=== PATIENT | male | born 1960 | race Caucasian/White ===

== ENCOUNTER 2019-12-16 08:21 | Outpatient (CLI) | payer OTHER, SELFPAY ==
--- NOTE | ~2019-12-16 | XR_ITS ---
EXAMINATION: XR knee RT 3V DATE: 12/16/2019 08:55 INDICATION: Right knee pain. TECHNIQUE: 3 views of right knee were obtained. COMPARISON: None. FINDINGS: Bone alignment is normal. No fracture. There is mild tricompartmental osteoarthritis. No kn ee joint effusion. IMPRESSION: 1. Mild right knee osteoarthritis. Reviewed, dictated and finalized at location B. RN CLERK
== END 2019-12-16 08:22 | disposition home or self-care (01) ==
PROVIDERS: PCP Family Medicine; Visit Provider Family Medicine
DX: M23.309 Other meniscus derangements, unspecified meniscus, unspecified knee (principal)
CPT/HCPCS: 73562

== ENCOUNTER 2020-07-06 15:01 | Outpatient (RCR) | payer OTHER, SELFPAY ==
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
== END 2020-07-06 16:24 | disposition home or self-care (01) ==
LOC: CHSPT 15:01
PROVIDERS: PCP Nurse Practitioner Family; Visit Provider Nurse Practitioner Family
DX: M19.90 Unspecified osteoarthritis, unspecified site (principal)
CPT/HCPCS: 97162

== ENCOUNTER 2021-10-01 20:32 | Emergency (ER) | payer OTHER, SELFPAY ==
--- NOTE | ~2021-10-01 | CT_ITS ---
EXAMINATION: CT cervical spine wo con DATE: 10/01/2021 22:17 INDICATION: Neck pain TECHNIQUE: Computed tomography (CT) of the cervical spine was performed without intravenous contrast. The dose-length product (DLP) was 411.40 mGy-cm. Automated exposure control and iterative reconstruc tion technique were employed. COMPARISON: None FINDINGS: There are 2 mm of retrolisthesis of C5 on C6. There is no fracture. There is moderate loss of intervertebral disc space height at C5-6. The odontoid is intact. The prevertebral soft tissues ar e normal. Small degenerative osteophytes project from the anterior endplates of multiple vertebral kiesha dies. There is moderate facet and uncovertebral joint osteoarthritis at C5-6. IMPRESSION: 1. Moderate cervical spondylosis at C5-C6 without acute findings. Reviewed, dictated and finalized at location A.
--- NOTE | ~2021-10-01 | CT_ITS ---
EXAMINATION: CT diagnostic chest wo con DATE: 10/01/2021 22:17 INDICATION: Thoracic back pain TECHNIQUE: Computed tomography (CT) of the chest was performed without intravenous contrast. The dose -length product (DLP) was 425.78 mGy-cm. Automated exposure control and iterative reconstruction tech nique were employed. COMPARISON: None FINDINGS: The lungs are free of focal airspace opacities. There is a 4 mm nodule in the right lower l obe. No pleural effusion or pneumothorax. Fissural lymph nodes are noted. No pathologically enlarged thoracic lymph nodes are identified. The heart size is normal. There is mild thoracic spondylosis. A stabilization screws noted in the right glenoid. IMPRESSION: 1. No CT correlate for the patient's symptoms. 2. 4 mm nodule of the right lower lobe, likely old granulomatous disease. If the patient has no risk factors for malignancy, no further follow up is required. If there are risk factors for malignancy ( i.e., history of smoking, asbestos or radiation exposure), consider followup CT in 12 months. Reviewed, dictated and finalized at location A. IMPRESSION: 1. No CT correlate for the patient's symptoms. 2. 4 mm nodule of the right lower lobe, likely old granulomatous disease. If th e patient has no risk factors for malignancy, no further follow up is required. If there are risk factors for malignancy (i.e., history of smoking, asbestos or radiation exposure), consider followup CT in 12 months.
[2021-10-01 20:41] VITALS: BP 133/82; PULSE 78; RESP 18; TEMP 37; O2SAT 98
[2021-10-01] MEDS: KETOROLAC (*BKC) 60 MG/2 ML VIAL IM (21:46)
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
[2021-10-01 23:36] VITALS: PULSE 72; RESP 18; TEMP 36.4; O2SAT 100
== END 2021-10-01 23:38 | disposition home or self-care (01) ==
PROVIDERS: Emergency Provider Emergency Medicine; PCP Family Medicine
DX: S13.4XXA Sprain of ligaments of cervical spine, initial encounter (principal); X50.9XXA Other and unspecified overexertion or strenuous movements or postures, initial encounter
CPT/HCPCS: 71250; 72125; 96372; 99284; J1885

== ENCOUNTER 2021-12-05 06:32 | Emergency (ER) | payer SELFPAY ==
--- NOTE | ~2021-12-05 | XR_ITS ---
EXAMINATION: XR foot RT min 3V DATE: 12/05/2021 07:02 INDICATION: Right foot injury and pain. TECHNIQUE: 4 views of right foot were obtained. COMPARISON: None. FINDINGS: Bone alignment is normal. No acute fracture. There is an old healed fracture of diaphysis o f second metatarsal. There is mild osteoarthritis of first metatarsophalangeal joint and some the int erphalangeal joints. There is an enthesophyte at plantar aspect of calcaneal tuberosity. IMPRESSION: 1. Mild polyarticular osteoarthritis. Reviewed, dictated and finalized at location A.
--- NOTE | ~2021-12-05 | XR_ITS ---
EXAMINATION: XR ankle RT min 3V DATE: 12/05/2021 07:01 INDICATION: Right ankle injury and pain. TECHNIQUE: 4 views of right ankle were obtained. COMPARISON: None. FINDINGS: Bone alignment is normal. No fracture. Joint spaces are well maintained. There is an enthes ophyte at plantar aspect of calcaneal tuberosity. IMPRESSION: 1. No fracture. Reviewed, dictated and finalized at location A. IMPRESSION: 1. No fracture.
[2021-12-05 06:40] VITALS: BP 133/77; PULSE 70; RESP 20; TEMP 36.6; O2SAT 100
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
[2021-12-05] MEDS: ACETAMINOPHEN 500 MG TABLET 1000 MG PO (06:57)
[2021-12-05 07:15] VITALS: PULSE 68; RESP 16; O2SAT 99
--- NOTE | 2021-12-05 07:25 | PC.NURSE ---
+pms post splint application
== END 2021-12-05 07:15 | disposition home or self-care (01) ==
LOC: CHSED 07:07
PROVIDERS: Emergency Provider Emergency Medicine; PCP Family Medicine
DX: S93.601A Unspecified sprain of right foot, initial encounter (principal)
CPT/HCPCS: 29515; 73610; 73630; 99283; L4350

== ENCOUNTER 2022-08-30 10:14 | Outpatient (CLI) | payer MEDICAID, SELFPAY ==
--- NOTE | ~2022-08-30 | XR_ITS ---
Thoracic spine: Clinical Indication: Polyarthritis AP and lateral views were performed. No fracture is seen. There is normal alignment of the vertebrae. The intervertebral disc spaces appe ar normal. Paravertebral soft tissues appear normal. Impression: No significant abnormalities noted. Reviewed, dictated and finalized at [facility]. Impression: No significant abnormalities noted.
--- NOTE | ~2022-08-30 | XR_ITS ---
Bilateral Hands Technique: Bilateral PA, oblique, and lateral views, and ball-catcher's view were obtained. Clinical History: Polyarthritis Findings: No acute fracture or dislocation is seen. Orthopedic screw present in the right scaphoid re lated to prior fracture fixation. Additional plate and interlocking screws are also present at the di stal right radius.. There is mild degenerative change of the DIP joints bilaterally, probably worst a t the left fourth and fifth DIP joints. There is mild degenerative change at the left first CMC joint . Soft tissues are unremarkable. Impression: Degenerative change at the bilateral DIP joints, worst at the left fourth and fifth DIP joints. Mild degenerative change of the left first CMC joint. Prior ORIF of the right scaphoid and distal right radius. Reviewed, dictated and finalized at location . Impression: Degenerative change at the bilateral DIP joints, worst at the left fourth and f ifth DIP joints. Mild degenerative change of the left first CMC joint. Prior ORIF of the right scaphoid and distal right radius.
--- NOTE | ~2022-08-30 | XR_ITS ---
Left Knee Technique: AP, lateral, and sunrise views were obtained. Clinical History: Polyarthritis Findings: No fracture or dislocation is seen. Osseous alignment is anatomic. Joint spaces are preserv ed without degenerative or erosive change. Soft tissues are unremarkable. No joint effusion is seen. Impression: Unremarkable left knee radiographs. Reviewed, dictated and finalized at location . Impression: Unremarkable left knee radiographs.
--- NOTE | ~2022-08-30 | XR_ITS ---
Right Knee Technique: AP, lateral, and sunrise views were obtained. Clinical History: Polyarthritis Findings: No fracture or dislocation is seen. Osseous alignment is anatomic. Joint spaces are preserv ed without degenerative or erosive change. Soft tissues are unremarkable. No joint effusion is seen. Impression: Unremarkable right knee radiographs. Reviewed, dictated and finalized at location . Impression: Unremarkable right knee radiographs.
--- NOTE | ~2022-08-30 | XR_ITS ---
Lumbosacral Spine: AP and lateral views Clinical History: Pain Findings: The normal lordotic curve is maintained. The vertebral bodies and posterior elements are i ntact. The intervertebral disc spaces are preserved. The sacroiliac joints are normally outlined. Impression: No significant abnormality. Reviewed, dictated and finalized at [facility]. Impression: No significant abnormality.
[2022-08-30 10:40] LABS: Basophils Absolute Auto 0.04 K/mm3 (0.00-0.10); Basophils Percent Auto 0.7 % (0.0-1.0); Eosinophils Absolute Auto 0.16 K/mm3 (0.02-0.50); Eosinophils Percent Auto 2.9 % (1.0-6.0); Hematocrit 41.5 % (40.0-54.0); Hemoglobin 14.3 g/dL (14.0-18.0); Immature Granulocyte Absolute 0.02 K/mm3 (0.00-0.00); Immature Granulocyte Percent A 0.4 % (0.0-0.0); Lymphocytes Absolute Auto 1.44 K/mm3 (1.10-4.50); Lymphocytes Percent Auto 25.9 % (18.0-42.0); Mean Corpuscular HGB Conc 34.5 g/dL (32.0-36.0); Mean Corpuscular Hemoglobin 31.6 pg (27.0-31.0); Mean Corpuscular Volume 91.6 fL (78.0-102.0); Mean Platelet Volume 9.9 fl (8.7-11.0); Monocytes Absolute Auto 0.53 K/mm3 (0.10-0.90); Monocytes Percent Auto 9.5 % (2.0-11.0); Neutrophils Absolute Auto 3.4 K/mm3 (1.7-7.2); Neutrophils Percent Auto 60.6 % (50.0-70.0); Platelet Count Result 183 K/mm3 (150-420); Red Blood Count 4.53 M/mm3 (4.70-6.10); Red Cell Distribution Width 12.5 % (11.6-14.4); White Blood Count 5.6 K/mm3 (4.8-10.8)
[2022-08-30 11:48] LABS: Alanine Aminotransferase 22 U/L (16-63); Albumin Level 3.8 g/dL (3.4-5.0); Alkaline Phosphatase 77 U/L (46-116); Anion Gap 8 mmol/L (8-16); Aspartate Amino Transferase 10 U/L (15-37); Bilirubin,Total 0.5 mg/dL (0.00-1.00); Blood Urea Nitrogen 15 mg/dL (7-18); Calcium 8.6 mg/dL (8.5-10.1); Carbon Dioxide 27 mmol/L (21-32); Chloride 109 mmol/L (98-108); Cholesterol 162 mg/dL (0-200); Estimated Glomerular Filt Rate > 60; Glucose 74 mg/dL (70-99); HDL Direct 46 mg/dL (40-60); LDL Cholesterol Calculated 110 mg/dL (<130); Osmolality Calculated 297 mOsm/kg (285-295); Potassium 4.5 mmol/L (3.5-5.1); Sodium 144 mmol/L (136-145); Total Protein 6.3 g/dL (6.4-8.2); Triglycerides 31 mg/dL (0-150)
[2022-08-30 11:50] LABS: Thyroid Stimulating Hormone Reflex 1.07 u/IU/mL (0.36-3.74)
== END 2022-08-30 10:15 | disposition home or self-care (01) ==
LOC: CHSLAB 10:15
PROVIDERS: PCP Family Medicine; Visit Provider Family Medicine
DX: Z00.00 Encounter for general adult medical examination without abnormal findings (principal); E11.9 Type 2 diabetes mellitus without complications; M13.0 Polyarthritis, unspecified; Z98.890 Other specified postprocedural states
CPT/HCPCS: 36415; 72072; 72100; 73130; 73562; 80053; 80061; 84443; 85025

== ENCOUNTER 2023-04-03 11:32 | Outpatient (CLI) | payer OTHER, SELFPAY ==
--- NOTE | ~2023-04-03 | XR_ITS ---
Left Hand Technique: PA, oblique, and lateral views were obtained. Clinical History: Pain Findings: No acute fracture or dislocation is seen. Osseous alignment is anatomic. There is mild to m oderate osteophytes of the fifth DIP joint. There is mild degenerative change of the fourth DIP joint . There is mild degenerative change at the first CMC joint. Soft tissues are unremarkable. Impression: Degenerative changes, as detailed above. Reviewed, dictated and finalized at location M. LY COURT COUNSELLOR Impression: Degenerative changes, as detailed above.
== END 2023-04-03 11:33 | disposition home or self-care (01) ==
LOC: CHSIMG 11:34
PROVIDERS: PCP Family Medicine; Visit Provider Nurse Practitioner Family
DX: M79.642 Pain in left hand (principal)
CPT/HCPCS: 73130

== ENCOUNTER 2023-07-28 19:54 | Emergency (ER) | payer OTHER, SELFPAY ==
[2023-07-28 19:55] VITALS: BP 142/95; PULSE 74; RESP 18; TEMP 36.7; O2SAT 94
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
[2023-07-28] MEDS: AMOXICILLIN 500 MG CAPSULE PO (20:22)
[2023-07-28] MEDS: KETOROLAC (*BKC) 60 MG/2 ML VIAL IM (20:23)
[2023-07-28 20:45] VITALS: BP 138/90; PULSE 72; RESP 18; O2SAT 100
== END 2023-07-28 20:45 | disposition home or self-care (01) ==
PROVIDERS: Emergency Provider Emergency Medicine; PCP Family Medicine
DX: K04.7 Periapical abscess without sinus (principal); K02.9 Dental caries, unspecified
CPT/HCPCS: 96372; 99283; A9270; J1885

== ENCOUNTER 2023-08-10 15:40 | Emergency (ER) | payer OTHER, SELFPAY ==
[2023-08-10 15:42] VITALS: BP 141/85; PULSE 65; RESP 20; TEMP 36.9; O2SAT 96
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
[2023-08-10] MEDS: TETANUS,DIPHTHERIA,AC PERTUSSIS ADULT 0.5 ML (ADACEL) IM (16:02)
[2023-08-10] MEDS: NEOMYCIN/POLYMYXIN/BACITRACIN OINTMENT PACKET 2 PACKET TOPICAL (16:13)
== END 2023-08-10 16:16 | disposition home or self-care (01) ==
PROVIDERS: Emergency Provider Emergency Medicine; PCP Family Medicine
DX: S41.111A Laceration without foreign body of right upper arm, initial encounter (principal); Z23 Encounter for immunization; W26.8XXA Contact with other sharp object(s), not elsewhere classified, initial encounter
CPT/HCPCS: 90471; 90715; 99283

== ENCOUNTER 2024-04-11 08:55 | Outpatient (CLI) | payer OTHER, SELFPAY ==
--- OUTSIDE RECORDS SUMMARY | 2024-04-11 09:16 | XMS_ITS | Clinical Summary ---
Author Organization [facility] Address [facility] [place] [address] Care Team Providers Care Driver Manager Name Role Phone NbajayeKobi DO Primary Care Provider [phone] Allergies No known active allergies Medications HYDROcodone-david taminophen (NORCO) 5-325 MG tabletIndicatio ns:Acute Pain < 7 Day Supply Take 1-2 tablets by mouth every 6 (six) hours as needed. Indications: Acute Pain < 7 Day Supply 20 tablet 02/26/2023 Active Social History Tobacco Use Types Packs/Day Years Used Date Smoking Tobacco: Never Smokeless Tobacco: Never Tobacco Cessation:Counseling Given: Not Answered Alcohol Use Standard Drinks/Week Comments Never 0 (1 standard drink = 0.6 oz pur e alcohol) Sex and Gender Information Value Date Recorded Sex Assigned at Not on file Legal Sex Male 10:04 PM [employer] SAL[employer] Gender Identity Not on file Sexual Orientation Not on file Last Filed Vital Signs Vital Sign Reading Time Taken Comments Blood Pressure 115/92 02/26/2023 7:00 PM [employer] SAL[employer] Pulse 91 02/26/2023 6:49 PM [employer] SAL[employer] Temperature 36.9 C (98.4 F) 02/26/2023 6:49 PM [employer]ATIONAL SALES [employer]IVE Respiratory Rate 16 02/26/2023 6:49 PM [employer] SAL[employer] Oxygen Saturation 94% 02/26/2023 7:00 PM [employer]ATIONAL SAL[employer]IVE Inhaled Oxygen Concentration - - Weight 88.5 kg (195 lb) 02/26/2023 6:49 PM [employer]ATIONAL SAL[employer] Height 185.4 cm (6' 1 ) 02/26/2023 6:49 PM [employer]ATIONAL SAL[employer]EC[employer]IVE Body Mass Index 25.73 02/26/2023 6:49 PM [employer]ATIONAL SALES EXEC[employer]IVE Plan of Treatment Health Maintenance Due Date Last Done Comments Colorectal Cancer Screening Colonoscopy (10 Years) 1962 Annual Physical 1965 Hepatitis C 1980 DTaP, Tdap and Td Vaccines ( 1 - Tdap) 1981 Zoster Vaccines (1 of 2) 2012 COVID-19 Vaccine (1 - 2023-2 5 season) 2023 Influenza Adult (#1) 2023 RSV Immunization or 60+ Years (1 - 1-dose 75+ series) 2037 Meningococcal B Vaccine Aged Out No l onger eligible based on patient's age to complete this topic Meningococcal Vaccine Aged Out No kevin josé eligible based on patient's age to complete this topic Pneumococcal Vaccine: Pediat rics (0 to 5 Years) and At-Risk Patients (6 to 64 Years) Aged Out No longer eligible b ased on patient's age to complete this topic RSV Immunizations Under 20 Months Aged Out No longer eligible based on patient's age to complete this topic Insurance Care Teams Driver Manager Relationship Specialty Start Date End Date Kobi Smith DO [address] [place] [address] PCP - General FAMILY PRACTICE 02/10/23
[2024-04-11 09:37] LABS: Estimated Glomerular Filt Rate 60
== END 2024-04-11 08:56 | disposition home or self-care (01) ==
PROVIDERS: PCP Family Medicine; Visit Provider Family Medicine
DX: R91.1 Solitary pulmonary nodule (principal)
CPT/HCPCS: 99199